=== PATIENT | female | born 1990 | race Hispanic/Latino ===

== ENCOUNTER 2019-01-24 10:12 | Day surgery (SDC) | payer OTHER, BC ==
[2019-01-23 16:05] VITALS: BMI 21.4
[2019-01-24] MEDS ORDERED: Fentanyl 100 MCG/2 ML VIAL ONE ×2 (11:11→11:12)
[2019-01-24] MEDS ORDERED: Doxycycline 100 MG CAP PO SCH (14:15)
[2019-01-24] MEDS ORDERED: Morphine 10 MG/ML VIAL IM PRN (14:27)
[2019-01-24] MEDS ORDERED: HYDROcodone/Acetaminophen 5/325 mg Tablet PO PRN ×2 (14:30)
[2019-01-24] MEDS ORDERED: Ondansetron PF 4 MG/2 ML Vial SLOW IVP PRN (14:30)
[2019-01-24] MEDS ORDERED: Dextrose 5 %-0.45 % NaCl 1,000 ML IV SCH (14:30)
[2019-01-24] MEDS ORDERED: Ketorolac Tromethamine 30 MG/ML VIAL ONE (15:20)
[2019-01-24] MEDS ORDERED: PROPOFOL 200 MG/20 ML VIAL ONE (15:20)
[2019-01-24] MEDS ORDERED: Dexamethasone 20 MG/5 ML VIAL ONE (15:20)
[2019-01-24] MEDS ORDERED: ePHEDrine 50 MG/ML VIAL ONE (15:20)
[2019-01-24] MEDS ORDERED: Lidocaine 1% PF 5 ML VIAL ONE (15:20)
[2019-01-24] MEDS ORDERED: Ondansetron PF 4 MG/2 ML Vial ONE (15:20)
--- NOTE | 2019-01-24 17:25 | OP ---
DATE OF PROCEDURE: 01/24/2019 PROCEDURES PERFORMED: Cervical dilation with suction and sharp curettage with ultrasound guidance. COMPUTER AIDED DESIGN OPERATOR: None. ANESTHESIA: LMA. COMPLICATIONS: None. EBL: 200 mL. OPERATIVE FINDINGS: 1. Uterus approximately 10 week size, known 8-week demise. 2. No uterine bleeding throughout the procedure. 3. Postprocedure ultrasound with no tissue or products of conception noted. DESCRIPTION OF PROCEDURE: The patient was taken back to the OR with IV fluids running. When she was in the OR, she was placed in dorsal supine position and anesthesia was obtained. Once the patient was asleep, she was placed in lithotomy position and vagina was prepped and draped in normal fashion for gynecologic surgery. The bladder drained approximately 200 mL of urine. An operative speculum was placed in the vagina. The cervix was grasped with a single-tooth tenaculum and the cervix was serially dilated using Hegar dilators to approximately 19-[place]yan. An 8 mm suction curette was assembled and gently passed through the cervix into the uterine cavity. Suction curettage was performed until no tissue was noted to pass through the suction tubing and when only minimal blood was noted to pass through the suction tubing. After this was completed, a gentle curettage was performed with the uterine cry noted. Of note, bedside transvaginal ultrasound was performed that showed a small amount of presumed blood clot at the fundus of the uterus. Suction curettage was passed again gently through the cervix and uterus and the remaining blood was suctioned from the uterine cavity. Postprocedure ultrasound confirmed no products of conception noted within the endometrium. The patient was then cleaned and dried. The speculum and the tenaculum were removed and tenaculum site was noted to be hemostatic. The specimen was collected in [employer] miscarriage test with POC and taken back to our office to be sent to the lab for desire genetic testing. Job ID: [id number]
== END 2019-01-24 14:57 | disposition home or self-care (01) ==
LOC: SDC 10:12
PROVIDERS: ATTEND Obstetrics & Gynecology
PROC: 10D17ZZ Extraction of Products of Conception, Retained, Via Natural or Artificial Opening (ICD-10-PCS; principal; 2019-01-24)
DX: O02.1 Missed abortion (principal); Z79.899 Other long term (current) drug therapy
CPT/HCPCS: J0690; J1100; J1885; J2001; J2405; J2704; J3010; J3490

== ENCOUNTER 2020-01-26 04:54 | Inpatient (IN) | payer BC, OTHER ==
[2020-01-26 05:34] VITALS: BMI 25.1
[2020-01-26] MEDS ORDERED: NS / Oxytocin 40 units/1000ml 1,000 ML IV PRN (05:43)
[2020-01-26] MEDS ORDERED: Butorphanol Tartrate 1 MG/ML VIAL SLOW IVP PRN (05:43)
[2020-01-26] MEDS ORDERED: Ibuprofen 800 MG TAB PO PRN (05:43)
[2020-01-26] MEDS ORDERED: Ondansetron PF 4 MG/2 ML Vial IVP PRN ×2 (05:43→06:50)
[2020-01-26] MEDS ORDERED: hydrALAZINE 20 MG/ML VIAL SLOW IVP PRN ×2 (05:43→16:22)
[2020-01-26] MEDS ORDERED: HYDROcodone/Acetaminophen 5/325 mg Tablet PO PRN (05:43)
[2020-01-26] MEDS ORDERED: Lidocaine 1% (PF) 30 ML VIAL SC PRN (05:43)
[2020-01-26] MEDS ORDERED: Penicillin G 2.5 MILL.units 2.5 MILL.UNITS in Premix Bag 1 BAG IVPB SCH (05:45)
[2020-01-26] MEDS ORDERED: Penicillin G Potassium 5 MILL.UNITS in Sodium Chloride 0.9% 100 ML IVPB SCH (05:45)
[2020-01-26] MEDS ORDERED: Lactated Ringer's 1,000 ML IV SCH ×2 (05:45)
[2020-01-26] MEDS ORDERED: Penicillin G Potassium 5 MILL.UNITS VIAL ONE (05:59)
[2020-01-26] MEDS ORDERED: Sodium Chloride 0.9% 100 ML ONE (06:00)
[2020-01-26 06:01] LABS: Hemoglobin 12.4 g/dL (12.0-16.0); Mean Corpuscular HGB CONC 32.8 g/dL (32.0-36.0); Mean Corpuscular Hemoglobin 28.8 pg (27.0-31.0); Mean Corpuscular Volume 87.7 fL (78.0-98.0); Mean Platelet Volume 8.9 fL (7.4-10.4); Platelet Count 349 thou/uL (130-400); RBC Distribution Width 13.8 % (11.5-14.5); Red Blood Cell (RBC) Count 4.32 mill/uL (4.20-5.40); White Blood Cell (WBC) Count 9.6 thou/uL (4.8-10.8)
[2020-01-26] MEDS ORDERED: Fentanyl 4 mcg/Bup 0.1% Cadd 100 ML ONE (06:07)
[2020-01-26 06:43] LABS: HBSAg Index 0.16 S/CO (0-0.99); Hep B Surf Ag Non-Reactive S/CO (NonReactive); Syphilis Antibody Nonreactive (Nonreactive); Syphilis Antibody Index 0.05 S/CO (<1.00 Non-Reactive)
[2020-01-26] MEDS ORDERED: EPHEDRINE 25 MG/5 ML SYRINGE SLOW IVP PRN (06:50)
[2020-01-26] MEDS ORDERED: Acetaminophen 325 MG TAB PO PRN (06:50)
[2020-01-26] MEDS ORDERED: diphenhydrAMINE 50 MG/ML VIAL IVP PRN (06:50)
[2020-01-26] MEDS ORDERED: Lactated Ringer's 500 ML IV PRN (06:50)
[2020-01-26] MEDS ORDERED: Promethazine HCl 25 MG/ML VIAL IM PRN (06:50)
[2020-01-26] MEDS ORDERED: Naloxone HCl 0.4 mg/ml Vial IVP PRN ×2 (06:50)
[2020-01-26] MEDS ORDERED: Communication Order-Pharmacy FS SCH (07:00)
[2020-01-26] MEDS ORDERED: Fentanyl 4 mcg/Bupivacaine 0.1% Cassette 100 ML EPIDURAL SCH (07:00)
[2020-01-26] MEDS ORDERED: Bupivacaine/Epinephrine 0.25% 30 ML VIAL ONE (09:11)
--- NOTE | 2020-01-26 12:08 | PDOC.OPDEL ---
OB Operative/Delivery Note Delivery Dr/Surgeon: Abdifatah/Italo ([facility] Staff); DR Monzon (Resident) also present (Placenta) Assist: Na (Placental delivery) Pre-Delivery Diagnosis: active labor, other (Meconium) Procedure/Post Delivery Dx: spontaneous vaginal delivery (at 1156) Weeks gestation: 39 Anesthesia: epidural - Findings A Sex: female - 1 min: 8 (verbal, not final) - 5 min: 9 (verbal, not final) - Additional Findings/Plan Placenta delivered: spontaneous (cornelius at 1200, slight mec stained. Sent to patholohy.) Repaired Obstetrical Laceration: 1st degree (Rt hymenal, also with 1st degree periurethral lacs' no repair done) Estimated blood loss: 200 at max Compilations/Other Findings: Baby vigours at ; 3VC; no complications with delivery. NICY present for . Cord gas sent (arterial) Post delivery plan: routine recovery
[2020-01-26 12:23] LABS: Actual Bicarbonate (HCO3a) 26.9 mEq/L (22-28); Actual Bicarbonate (HCO3v) 24 mEq/L (22-28); Base Excess -2.6 mEq/L (-2.0 to +3.0); Base Excess (BEa) -3.1 mEq/L (-2.0 to +3.0); pH (Cord, venous) 7.31 (7.32-7.43)
[2020-01-26] MEDS ORDERED: Bisacodyl 10 MG SUPP PR PRN (16:22)
[2020-01-26] MEDS ORDERED: Lanolin Ointment 7 GM TUBE TOP PRN (16:22)
[2020-01-26] MEDS ORDERED: NS / Oxytocin 40 units/1000ml 1,000 ML IV SCH (16:22)
[2020-01-26] MEDS ORDERED: Milk Of Magnesia 30 ML UDCUP PO PRN (16:22)
[2020-01-26] MEDS: Ferrous Sulfate 325 MG TAB PO SCH (16:46)
[2020-01-26] MEDS ORDERED: Ibuprofen 800 MG TAB PO SCH (17:00)
[2020-01-26] MEDS ORDERED: Sodium Chloride 0.9% 10 ML ONE (18:44)
[2020-01-26] MEDS: Ibuprofen 800 MG TAB PO SCH (21:05)
[2020-01-26] MEDS: Docusate Calcium (SURFAK) 240 MG CAP PO SCH (21:05)
[2020-01-27] MEDS: Ibuprofen 800 MG TAB PO SCH ×2 (04:15→14:00)
[2020-01-27] MEDS: Docusate Calcium (SURFAK) 240 MG CAP PO SCH (07:52)
[2020-01-27] MEDS: Ferrous Sulfate 325 MG TAB PO SCH (07:52)
--- NOTE | 2020-01-27 08:19 | PDOC.PP ---
Post Progress Note Post Day #: 1 Subjective: doing well, no concerns, minimal lochia, breast feeding PO intake tolerated: yes Flatus: yes Ambulation: yes Vital Signs (12 hours) Temp Pulse Resp BP Pulse Ox 01/27/20 04:20 97.8 F 70 20 112/72 98 01/27/20 00:00 98.2 F 77 18 115/66 98 Weight Weight 170 lb - Physical Examination General: NAD Respiratory: non-labored breathing Abdominal: no distention Skin: no rash Neurological: no gross focal deficits Psychiatric: A&Ox3, normal affect Result Diagrams: 01/26/20 05:52 Additional Labs: Post Labs Blood Type B POSITIVE 01/26/20 05:52 Hep Bs Antigen Non-Reactive S/CO (NonReactive) 01/26/20 05:52 (1) Vaginal delivery Code(s): O80 - ENCOUNTER FOR FULL-TERM UNCOMPLICATED DELIVERY Status: Acute - Assessment/Plan PPD1 doing well, desires DC later today if baby DC.
[2020-01-27] MEDS ORDERED: Adacel (T-DAP) 0.5 ML SYRINGE IM ONE (09:00)
[2020-01-27] MEDS ORDERED: Prenatal Vitamin 1 TAB PO SCH (09:00)
[2020-01-27 09:56] VITALS: BP 114/63; TEMP 98.3
== END 2020-01-27 17:30 | disposition home or self-care (01) | DRG 807 ==
LOC: L&D/OP 04:54 → L&D 05:43 → 3SW 15:06
PROVIDERS: ADMIT Obstetrics & Gynecology; ATTEND Obstetrics & Gynecology
PROC: 10E0XZZ Delivery of Products of Conception, External Approach (ICD-10-PCS; principal; 2020-01-26)
PROC: 0HQ9XZZ Repair Perineum Skin, External Approach (ICD-10-PCS; 2020-01-26)
PROC: 3E0234Z Introduction of Serum, Toxoid and Vaccine into Muscle, Percutaneous Approach (ICD-10-PCS; 2020-01-27)
DX: O99.824 Streptococcus B carrier state complicating childbirth (principal); Z37.0 Single live birth; Z3A.39 39 weeks gestation of pregnancy; O77.0 Labor and delivery complicated by meconium in amniotic fluid; O70.0 First degree perineal laceration during delivery; O71.82 Other specified trauma to perineum and vulva; Z23 Encounter for immunization
CPT/HCPCS: 51702; 82805; 85027; 86780; 86850; 86900; 86901; 87340; 88307; 90715; 99285; J2540; J3490

== ENCOUNTER 2022-09-12 12:58 | Outpatient (CLI) | payer BC ==
[2022-09-12 14:52] LABS: #Eosinphils 0.2 10x3/uL (0.0-0.5); #Monocytes 0.4 10x3/uL (0.0-1.1); #Neutrophils 4.1 10x3/uL (1.5-8.4); %Basophils 0.6 % (0.0-2.0); %Eosinophils 2.3 % (0.0-6.0); %Lymphocytes 27.8 % (18.0-47.0); %Monocytes 5.6 % (0.0-10.0); %Neutrophils 63.4 % (40.0-75.0); Hemoglobin 13.1 g/dL (12.0-15.5); Mean Corpuscular HGB CONC 33.9 g/dL (32.0-36.0); Mean Corpuscular Hemoglobin 30.2 pg (27.0-33.0); Mean Corpuscular Volume 88.9 fl (81.6-98.3); Mean Platelet Volume 10.5 fl (7.4-10.4); Platelet Count 427 10x3/uL (150-450); RBC Distribution Width 13.3 % (11.5-14.5); Red Blood Cell (RBC) Count 4.34 10x6/uL (3.90-5.03); White Blood Cell (WBC) Count 6.4 10x3/uL (3.5-10.5)
[2022-09-12 15:15] LABS: BHCG - Serum Negative (NEGATIVE); Pregs Control Background? CLEAR/WHITE (CLR/WHITE); Pregs Control Bar Appear? YES (CONTROL BAR)
== END 2022-09-12 12:59 | disposition home or self-care (01) ==
LOC: LABBT 12:58
PROVIDERS: ATTEND Orthopaedic Surgery
DX: Z01.812 Encounter for preprocedural laboratory examination (principal); M67.432 Ganglion, left wrist
CPT/HCPCS: 84703; 85025

== ENCOUNTER 2022-09-14 07:00 | Day surgery (SDC) | payer BC ==
[2022-09-12 15:21] VITALS: BMI 24.7
[2022-09-14] MEDS ORDERED: CEFAZOLIN 2 GM VIAL ONE (08:58)
[2022-09-14] MEDS ORDERED: EPINEPHrine 1 MG/ML AMP ONE (08:58)
[2022-09-14] MEDS ORDERED: Sodium Chloride 0.9% 100 ML ONE (08:58)
[2022-09-14] MEDS ORDERED: Lidocaine 1% (PF) 30 ML VIAL ONE (08:58)
[2022-09-14] MEDS ORDERED: fentaNYL PF 100 MCG/2 ML SYRINGE ONE (09:06)
[2022-09-14] MEDS ORDERED: Midazolam HCl 2 mg/2 ml Vial ONE (09:27)
[2022-09-14] MEDS ORDERED: PROPOFOL 200 MG/20 ML VIAL ONE (09:29)
[2022-09-14] MEDS ORDERED: Ondansetron PF 4 MG/2 ML Vial ONE (09:29)
[2022-09-14] MEDS ORDERED: Dexamethasone 20 MG/5 ML VIAL ONE (09:29)
[2022-09-14] MEDS ORDERED: Lidocaine 1% PF 5 ML VIAL ONE (09:29)
[2022-09-14] MEDS ORDERED: Ketorolac Tromethamine 30 MG/ML VIAL ONE (09:29)
== END 2022-09-14 12:12 | disposition home or self-care (01) ==
LOC: SDC 07:00
PROVIDERS: ATTEND Orthopaedic Surgery
PROC: 0RBP0ZZ Excision of Left Wrist Joint, Open Approach (ICD-10-PCS; principal; 2022-09-14)
DX: M67.432 Ganglion, left wrist (principal); Z79.899 Other long term (current) drug therapy
CPT/HCPCS: 88304; J0171; J1100; J1885; J2001; J2250; J2405; J2704; J3490